=== PATIENT | male | born 1960 | race Caucasian/White ===

== ENCOUNTER 2018-09-16 12:42 | Day surgery (SDC) | payer OTHER ==
[2018-09-16] MEDS ORDERED: ceFAZolin 2 GM/DEXTROSE 100 ML IV ONE (13:00)
[2018-09-16] MEDS ORDERED: LIDOCAINE 1% 2 ML INJ ID PRN (13:01)
[2018-09-16] MEDS ORDERED: LR 1,000 ML IV ONE (13:01)
[2018-09-16] MEDS ORDERED: BUPIVACAINE 0.5% 30 ML SDV ONE ×2 (14:11→14:39)
--- NOTE | 2018-09-16 14:20 | PDHPUP ---
History & Physical Update H&P update statement: This history and physical update is based on an assessment of the patient which was completed after admission or registration (within 24 hours), but prior to the surgery/procedure. H&P update: H&P reviewed & patient examined, no change in patient's condition since H&P completed
--- NOTE | 2018-09-16 14:22 | PDANEPAE ---
ANE History of Present Illness cholelithiasis here for cholecystectomy ANE Past Medical History - Cardiovascular History Hx Hypertension: No Hx Arrhythmias: No Hx Chest Pain: No Hx Coronary Artery / Peripheral Vascular Disease: No Hx CHF / Valvular Disease: No Hx Palpitations: No - Pulmonary History Hx COPD: No Hx Asthma/Reactive Airway Disease: No Hx Recent Upper Respiratory Infection: Yes Hx Oxygen in Use at Home: No Hx Sleep Apnea: No Pulmonary History Comment: "Head cold" 3 weeks ago - Neurologic History Hx Cerebrovascular Accident: No Hx Seizures: No Hx Dementia: No - Endocrine History Hx Diabetes: No - Renal History Hx Renal Disorders: No - Liver History Hx Hepatic Disorders: No - Neurological & Psychiatric Hx Hx Neurological and Psychiatric Disorders: No - Cancer History Hx Cancer: No - Congenital Disorder History Hx Congenital Disorders: No - GI History Hx Gastrointestinal Disorders: Yes Gastrointestinal History Comment: GERD - Chronic Pain History Chronic Pain: No - Surgical History Prior Surgeries: Rotator cuff repair-left shoulder (2002) ANE Review of Systems Review of Systems: - Exercise capacity METS (RN): 4 METS ANE Patient History - Allergies Allergies/Adverse Reactions: No Known Allergies Allergy (Unverified 09/10/18 10:42) - Home Medications Home Medications: Esomeprazole Mag Trihydrate [Nexium] 40 mg PO DAILY 09/16/18 [Last Taken 1 Day Ago ~09/15/18] Fluticasone Nasal [Flonase Nasal [place]] 2 spray NASAL DAILY 09/16/18 [Last Taken 1 Day Ago ~09/15/18] - NPO status NPO Status: no food or drink >8 hours NPO Since - Liquids (Date): 09/15/18 NPO Since - Liquids (Time): 23:30 NPO Since - Solids (Date): 09/15/18 NPO Since - Solids (Time): 20:30 - Anes Hx Anes Hx: no prior problems - Smoking Hx Smoking Status: Never smoked - Alcohol Use Alcohol Use: Occasionally - Family Anes Hx Family Anes Hx: none ANE Labs/Vital Signs - Vital Signs Blood Pressure: 186/100 Heart Rate: 59 Respiratory Rate: 16 O2 Sat (%): 97 Height: 175.26 cm Weight: 82.554 kg ANE Physical Exam - Airway Neck exam: FROM Mallampati Score: Class 2 Mouth exam: normal dental/mouth exam - Pulmonary Pulmonary: no respiratory distress, clear to auscultation - Cardiovascular Cardiovascular: regular rate and rhythym, no murmur, rub, or gallop - ASA Status ASA Status: II ANE Anesthesia Plan Anesthesia Plan: general endotracheal anesthesia
[2018-09-16] MEDS ORDERED: MIDAZOLAM 2 MG/2 ML VIAL IVP ONE (14:23)
[2018-09-16] MEDS ORDERED: PROPOFOL 200 MG/20 ML VIAL ONE (14:28)
[2018-09-16] MEDS ORDERED: fentaNYL 100 MCG/2 ML INJ ONE ×2 (14:28→15:46)
[2018-09-16] MEDS ORDERED: ROCURONIUM 50 MG/5 ML VIAL ONE (14:29)
[2018-09-16] MEDS ORDERED: LIDOCAINE 2% 100 MG/5 ML SYR ONE (14:29)
[2018-09-16] MEDS ORDERED: NALOXONE HCL 0.4 MG/ML INJ IVP PRN (15:27)
[2018-09-16] MEDS ORDERED: HYDROmorphONE/DILAUDID 2 MG/ML INJ IVP PRN (15:27)
[2018-09-16] MEDS ORDERED: ACETAMINOPHEN 500 MG TAB PO PRN (15:27)
[2018-09-16] MEDS ORDERED: LABETALOL HCL 20 MG/4 ML INJ IVP PRN (15:27)
[2018-09-16] MEDS ORDERED: fentaNYL 100 MCG/2 ML INJ IVP PRN (15:27)
[2018-09-16] MEDS ORDERED: PROMETHAZINE HCL 25 MG/ML INJ IVP PRN (15:27)
[2018-09-16] MEDS ORDERED: HYDROCODONE/APAP 5/325 TAB PO PRN (15:27)
[2018-09-16] MEDS ORDERED: ONDANSETRON 4 MG/2 ML VIAL IVP PRN (15:27)
--- NOTE | 2018-09-16 15:56 | POSTOPPROG ---
Post Op Note Date of Operation: 09/16/18 Surgeon: Sharyn Bennett Anesthesiologist: david Anesthesia: GET(General Endotracheal) Pre-op Diagnosis: acute calculous lachelle Post-op Diagnosis: same Indication: 58 yo with acute lachelle Procedure: lap lachelle Inf/Abcess present in the surg proc area at time of surgery?: No EBL: Minimal Specimen(s): gb
--- NOTE | 2018-09-16 16:02 | POSTANESTH ---
Post Anesthetic Evaluation Cardiovascular Status: Normal, Stable, Similar to Pre-Op Cond Respiratory Status: Normal, Stable, Similar to Pre-op Cond. Level of Consciousness/Mental Status: Can Participate in Eval, Alert and Oriented Pain Control: Adequate, Prn Tx Ordered Nausea/Vomiting Control: Adequate, Prn Tx Ordered Complications Possibly Related to Anesthesia: None Noted
[2018-09-16] MEDS ORDERED: oxyCODONE IR 5 MG TAB ONE ×2 (16:19→17:00)
[2018-09-16] MEDS: oxyCODONE IR 5 MG TAB PO PRN ×2 (16:20→17:03)
[2018-09-16] MEDS ORDERED: ACETAMINOPHEN 500 MG TAB ONE (16:20)
[2018-09-16 16:56] VITALS: BP 183/97
[2018-09-16] MEDS ORDERED: ONDANSETRON DISINTEGRATING 4 MG TAB ONE (17:01)
== END 2018-09-16 17:11 | disposition home or self-care (01) ==
LOC: FSGY 12:42
PROVIDERS: ATTEND Surgery
PROC: 0FT44ZZ Resection of Gallbladder, Percutaneous Endoscopic Approach (ICD-10-PCS; principal; 2018-09-16 14:30)
DX: K80.20 Calculus of gallbladder without cholecystitis without obstruction (principal); K21.9 Gastro-esophageal reflux disease without esophagitis
CPT/HCPCS: J0690; J2001; J2704; J3010